=== PATIENT | male | born 1975 | race Caucasian/White ===

== ENCOUNTER 2019-04-13 06:09 | Emergency (ER) | payer OTHER ==
[2019-04-13 06:39] VITALS: BP 134/88
== END 2019-04-13 08:16 | disposition home or self-care (01) ==
LOC: ED 07:13
DX: I82.622 Acute embolism and thrombosis of deep veins of left upper extremity (principal); I82.B12 Acute embolism and thrombosis of left subclavian vein; I10 Essential (primary) hypertension
CPT/HCPCS: 36415; 71046; 80048; 82040; 85025; 85610; 85730; 93005; 99284